=== PATIENT | male | born 2000 | race Two or more races ===

== ENCOUNTER 2024-10-05 14:40 | Emergency (ER) | payer OTHER ==
[~2024-10-05] VITALS: Ht 175.3 cm; Wt 70.3 kg
[2024-10-05] MEDS ORDERED: BACITRACIN-NEOMYCIN-POLYMYXIN 0.9 GM PACKET TOP ONE (16:27)
[2024-10-05] MEDS ORDERED: KETOROLAC TROMETHAMINE 10 MG TABLET PO ONE (16:57)
[2024-10-05] MEDS ORDERED: KETOROLAC TROMETHAMINE 10 MG TABLET PO PRN (17:00)
== END 2024-10-05 17:04 | disposition home or self-care (01) ==
LOC: ER 14:40
DX: S61.411A Laceration without foreign body of right hand, initial encounter (principal); S50.819A Abrasion of unspecified forearm, initial encounter; W10.8XXA Fall (on) (from) other stairs and steps, initial encounter; Y93.89 Activity, other specified; Y92.89 Other specified places as the place of occurrence of the external cause; Y99.8 Other external cause status